=== PATIENT | female | born 1985 | race African-American/Black ===

== ENCOUNTER 2025-06-27 12:51 | Emergency (ER) | payer SELFPAY ==
[~2025-06-27] VITALS: Ht 170.2 cm; Wt 68.0 kg
[2025-06-27 13:01] VITALS: O2SAT 99
[2025-06-27 13:31] LABS: BASOPHILS % 0.1 % (0.0-2.0); EOSINOPHILS % 0.4 % (0.0-5.0); HEMATOCRIT. 30.4 % (36.0-48.0); HEMOGLOBIN. 9.5 g/dL (12.0-16.0); LYMPHOCYTES % 15.9 % (20.0-50.0); MEAN PLATELET VOLUME 7.7 fl (7.4-10.4); MONOCYTES % 7.5 % (2.0-8.0); NEUTROPHILS % 76.1 % (40.0-76.0); PLATELET 327 x1000/uL (130-400); RED BLOOD CELL COUNT 3.99 mill/uL (4.2-5.4); RED CELL DISTRIBUTION WIDTH 16.2 % (11.6-14.6)
[2025-06-27 13:45] LABS: CREATININE 0.8 mg/dL (0.6-1.0)
[2025-06-27 13:46] LABS: UREA NITROGEN BLOOD 10 mg/dL (9-23)
[2025-06-27] MEDS ORDERED: SULF1TAB48 MT (14:20)
[2025-06-27] MEDS ORDERED: IBUP-2028 MT (14:20)
[2025-06-27] MEDS ORDERED: TOPUD MT (14:20)
[2025-06-27] MEDS: IBUPROFEN 400MG TABLET PO NR (14:24)
[2025-06-27] MEDS: TETANUS, DIPHTHERIA, PERTUSSIS VAC/PF 0.5ML (>10YR OLD) IM ONE (14:25)
[2025-06-27 14:42] VITALS: BP 138/87; PULSE 89; RESP 16; TEMP 36.7; O2SAT 96
== END 2025-06-27 14:49 | disposition home or self-care (01) ==
LOC: ER 12:51
DX: S60.562A Insect bite (nonvenomous) of left hand, initial encounter (principal); L03.114 Cellulitis of left upper limb; Z88.8 Allergy status to other drugs, medicaments and biological substances; W57.XXXA Bitten or stung by nonvenomous insect and other nonvenomous arthropods, initial encounter; Y93.89 Activity, other specified; Y92.89 Other specified places as the place of occurrence of the external cause; Y99.8 Other external cause status
CPT/HCPCS: 36415; 80048; 85025; 90471; 90715; 99283

== ENCOUNTER 2025-06-30 15:35 | Emergency (ER) | payer MEDICAID ==
[~2025-06-30] VITALS: Ht 172.7 cm; Wt 91.0 kg
[2025-06-30 15:35] VITALS: O2SAT 98
[~2025-06-30 15:35] MED LIST: IBUP-2028 MT; SULF1TAB48 MT; TOPUD MT
[2025-06-30 16:06] VITALS: BP 118/72; PULSE 69; RESP 16; TEMP 36.7; O2SAT 99
== END 2025-06-30 16:40 | disposition left against medical advice (07) ==
LOC: ER 15:35
DX: Z04.89 Encounter for examination and observation for other specified reasons (principal); Z53.21 Procedure and treatment not carried out due to patient leaving prior to being seen by health care provider